=== PATIENT | female | born 1930 | race Caucasian/White ===

== ENCOUNTER 2017-01-15 09:36 | Emergency (ER) | payer MEDICARE ==
[~2017-01-15] VITALS: Ht 157.5 cm; Wt 67.0 kg
[~2017-01-15 09:36] MED LIST: AMLO5 PO; GALA16CA PO; HYDR-3288 PO; LISI-515 PO; LOVA20TA PO; MEGE40TA PO; PARO10TA2 PO; XARE10TA PO
[2017-01-15 09:39] VITALS: BP 154/70; PULSE 91; RESP 17; TEMP 97.8; O2SAT 98
--- NOTE | 2017-01-15 09:58 | PD ---
HPI Chief Complaint: Fall Time Seen by Provider: 09:55 Travel History International Travel<30 days: No Contact w/Intl Traveler<30days: No Traveled to known affect area: No History of Present Illness HPI Patient is an 86 year old female brought in by her family members for evaluation after fall. Patient fell at approximately 0645 this morning when she was attempting to get out of bed to use the bedside commode. Patient reports hitting her head on the floor but family members believe that she likely hit it on the dresser. Patient denies any complaints at this time. She has been ambulating normally does without any new difficulty. Patient is not on any blood thinners. Patient has 24-hour care at home due to baseline dementia. PFSH Past Medical History Arthritis: Yes (OSTEOPAROSIS) Heart Rhythm Problems: Yes (IRREG. HEART BEAT) Cancer: No High Cholesterol: Yes Diabetes: No GERD: Yes Glaucoma: No Hepatitis: No Hiatal Hernia: No Hypertension: Yes Medical other: Yes (DEGENERATIVE DISC DISEASE SPINE) Musculoskeletal: Yes (hip sx) Respiratory: No Immunizations Current: Yes Thyroid Disease: No Tetanus Vaccination: < 5 Years Influenza Vaccination: Yes Past Surgical History Abdominal Surgery: Yes (APPY) Appendectomy: Yes Eye Surgery: Yes (CATARACT LEFT EYE) Oral Surgery: Yes (TONSILS) Pacemaker: No Tonsillectomy: Yes Other Surgery: Yes Social History Alcohol Use: No Tobacco Use: No Substance Use: No Allergies-Medications (Allergen,Severity, Reaction): Coded Allergies: No Known Allergies (Verified , 01/15/17) Reported Meds & Prescriptions Reported Meds & Active Scripts Active Center (Hydrocodone-Acetaminophen) 7.5-325 mg Tab 1 Tab PO Q4H PRN Lisinopril 20 Mg Tab 20 Mg PO Q12HR Norvasc (Amlodipine Besylate) 5 Mg Tab 5 Mg PO DAILY 30 Days Galantamine ER (Galantamine Hydrobromide) 16 Mg Caper 8 Mg PO BID Reported Paroxetine (Paroxetine HCl) 10 Mg Tab 10 Mg PO DAILY Lovastatin 20 Mg Tab 20 Mg PO HS Review of Systems ROS Limitations: Poor Historian Except as stated in HPI: all other systems reviewed are Neg Musculoskeletal: No: Myalgias, Pain Neurologic: No: Weakness, Dizziness, Focal Abnormalities, Headache Physical Exam Narrative GENERAL: Well-developed, well-nourished, elderly female. Resting comfortably in no acute distress. Family at bedside. SKIN: Warm and dry. HEAD: Atraumatic. Normocephalic. EYES: Pupils equal and round. No scleral icterus. No injection or drainage. ENT: No nasal bleeding or discharge. Mucous membranes pink and moist. NECK: Trachea midline. No JVD. CARDIOVASCULAR: Irregular rate and rhythm. RESPIRATORY: No accessory muscle use. Clear to auscultation. Breath sounds equal bilaterally. GASTROINTESTINAL: Abdomen soft, non-tender, nondistended. Hepatic and splenic margins not palpable. MUSCULOSKELETAL: Extremities without clubbing, cyanosis, or edema. No obvious deformities. NEUROLOGICAL: Awake and alert to self only. No obvious cranial nerve deficits. Motor grossly within normal limits. Five out of 5 muscle strength in the arms and legs. Normal speech. PSYCHIATRIC: Appropriate mood and affect; insight and judgment impaired. Data Data Last Documented VS Vital Signs Date Time Temp Pulse Resp B/P Pulse Ox O2 Delivery O2 Flow Rate FiO2 01/15/17 09:39 97.8 91 17 154/[address] Brain W/O Iv Contrast(Rout) (01/15/17 ) [facility] Medical Decision Making Medical Screen Exam Complete: Yes Emergency Medical Condition: Yes Interpretation(s) Vital Signs Date Time Temp Pulse Resp B/P Pulse Ox O2 Delivery O2 Flow Rate FiO2 01/15/17 09:39 97.8 91 17 154/70 98 Differential Diagnosis Contusion versus hemorrhage versus laceration versus abrasion Narrative Course Patient is an 86-year-old female brought in by her family members for evaluation after a mechanical fall this morning. Patient reports hitting her head, there was no loss of consciousness. Patient has no other complaints at this time. Patient has 24-hour care at home. Vital signs are stable. CT scan of the brain shows no acute hemorrhage or abnormality. Patient will be discharged home with strict return precautions. Family members verbalized understanding of instructions. Patient is stable for discharge. Diagnosis Primary Impression: Fall Qualified Code: W19.XXXA - Fall, initial encounter Additional Impression: Contusion of head Qualified Code: S00.03XA - Contusion of scalp, initial encounter Referrals: Primary Care Physician Patient Instructions: Fall Prevention for Older Adults (ED), General Instructions, Head Injury (ED) Additional Instructions: Return to emergency department immediately for any new or worsening symptoms Follow-up with primary care Med/Other Pt SpecificInfo: No Change to Meds Disposition: 01 DISCHARGE HOME Condition: Stable Savita Daniel Jan 15, 2017 09:58
--- NOTE | 2017-01-15 10:00 | PD ---
Data Data Last Documented VS Vital Signs Date Time Temp Pulse Resp B/P Pulse Ox O2 Delivery O2 Flow Rate FiO2 01/15/17 09:39 97.8 91 17 154/[address] Brain W/O Iv Contrast(Rout) (01/15/17 ) MDM Supervised Visit with [place]: Yes Narrative Course I, Dr. Webster, have reviewed the advance practice practioner's documentation and am in agreement, met with the patient face to face, made the diagnosis, and the medical decision making was done by me. *My assessment and Findings: 86-year-old female brought in by family after fall at approximately 645 this morning while she was attempting to get out of bed. Believes that she sit hit her head on a dresser. No LOC. No headache, nausea vomiting or any other pain. Family notes a "goose egg" to the left forehead/ scalp region. She is not anticoagulated. GCS 1 15, mental status baseline per family. No focal neuro deficit. No head neck or back pain. She does have a contusion over the left frontal parietal scalp. Patient is minimally ablate independently since fall. Differential includes mechanical fall, closed head injury, skull fracture, ICH. Will obtain head CT and discharged home if negative. Amanda Webster MD Jan 15, 2017 10:00
--- NOTE | 2017-01-15 10:48 | RADRPT ---
EXAM DATE/TIME: 01/15/2017 10:14 [facility] COMPARISON: CT BRAIN W/O CONTRAST, September 05, 2016, 21:32. INDICATIONS : Fell out of bed and hit head. RADIATION DOSE: 56.35 CTDIvol (mGy) MEDICAL HISTORY : Hypertension. Cardiovascular disease SURGICAL HISTORY : Tonsillectomy. ENCOUNTER: Initial ACUITY: 1 day PAIN SCALE: 3/10 LOCATION: cranial TECHNIQUE: Multiple contiguous axial images were obtained of the head. Using automated exposure control and adj ustment of the mA and/or kV according to patient size, radiation dose was kept as low as reasonably a chievable to obtain optimal diagnostic quality images. FINDINGS: There is no evidence for intracranial hemorrhage, mass effect, mass lesions, or edema. The visualize d bony structures appear intact. Significant degree of brain atrophy is seen. Moderate to severe per iventricular white matter changes are seen nonspecific mostly consistent with chronic small vessel is chemic changes. There are no signs of acute infarction for technique. 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 CONCLUSION: Chronic and small vessel ischemic changes without any evidence for acute hemorrhage o r mass effect. Autumn Mcmahan MD on January 15, 2017 at 10:45 Board Certified Radiologist. This report was verified electronically.
== END 2017-01-15 11:08 | disposition home or self-care (01) ==
LOC: NEPD 09:36
DX: S00.03XA Contusion of scalp, initial encounter (principal); W06.XXXA Fall from bed, initial encounter
CPT/HCPCS: 70450; 99283

== ENCOUNTER 2017-06-17 19:09 | Emergency (ER) | payer MEDICARE ==
[~2017-06-17] VITALS: Ht 160 cm; Wt 67.0 kg
[~2017-06-17 19:09] MED LIST changes: -MEGE40TA PO; -XARE10TA PO
[2017-06-17 19:25] VITALS: BP 161/88; PULSE 92; RESP 16; TEMP 97.7; O2SAT 99
[2017-06-17] MEDS ORDERED: MEMA1TAB2 PO (19:26)
--- NOTE | 2017-06-17 19:52 | RADRPT ---
EXAM DATE/TIME: 06/17/2017 19:26 [facility] COMPARISON: No previous studies available for comparison. INDICATIONS : Twisted foot this evening while falling today. Pain while walking in lateral malleolus. MEDICAL HISTORY : Hypertension. SURGICAL HISTORY : None. ENCOUNTER: Initial ACUITY: 1 day PAIN SCORE: 0/10 LOCATION: Left foot FINDINGS: Two view examination of the left foot demonstrates no soft tissue swelling, dislocation, or fracture. The calcaneus is intact. Bones are osteopenic. CONCLUSION: No acute fracture or subluxation seen of the left foot. Nimesh Brewster MD on June 17, 2017 at 19:49 Board Certified Radiologist. This report was verified electronically.
--- NOTE | 2017-06-17 19:54 | RADRPT ---
EXAM DATE/TIME: 06/17/2017 19:27 [facility] COMPARISON: No previous studies available for comparison. INDICATIONS : Twisted foot this evening while falling today. Pain while walking in lateral malleolus. MEDICAL HISTORY : Hypertension. SURGICAL HISTORY : None. ENCOUNTER: Initial ACUITY: 1 day PAIN SCORE: 7/10 LOCATION: Left Ankle FINDINGS: Soft tissues are swollen, especially laterally. There is a questionable nondisplaced fracture of the lateral malleolus, level with the tibiotalar joint. No subluxation. CONCLUSION: Suspected nondisplaced fracture of the lateral malleolus. Nimesh Brewster MD on June 17, 2017 at 19:51 Board Certified Radiologist. This report was verified electronically.
--- NOTE | 2017-06-17 20:15 | PD ---
HPI Chief Complaint: Injury Time Seen by Provider: 19:28 Travel History International Travel<30 days: No Contact w/Intl Traveler<30days: No Traveled to known affect area: No History of Present Illness HPI Patient is an 87-year-old female with a history of stroke leaving some difficulty with walking presents emergency department after a slip in the bathroom. She has 24 hour health care at home and apparently slipped in the bathroom on a wet floor and was caught by her aide and lowered to the ground. She doesn't think she actually injured the ankle. She states "I don't think I need to be here". Quite pleasant able to answer all of her history on her own. Denies any head injury and neck injury back injury chest abdomen or pelvis pain. She is a coming by her home health aide reynaldo which is not the same aide who helps her with the fall. No syncope no chest pain no shortness of breath. PFSH Past Medical History Arthritis: Yes (OSTEOPAROSIS) Heart Rhythm Problems: Yes (IRREG. HEART BEAT) Cancer: No High Cholesterol: Yes Diabetes: No GERD: Yes Glaucoma: No Hepatitis: No Hiatal Hernia: No Hypertension: Yes Musculoskeletal: Yes (hip sx) Respiratory: No Immunizations Current: Yes Thyroid Disease: No ?: Not Past Surgical History Abdominal Surgery: Yes (APPY) Appendectomy: Yes Eye Surgery: Yes (CATARACT LEFT EYE) Oral Surgery: Yes (TONSILS) Pacemaker: No Tonsillectomy: Yes Other Surgery: Yes Social History Alcohol Use: No Tobacco Use: No Substance Use: No Allergies-Medications (Allergen,Severity, Reaction): Coded Allergies: No Known Allergies (Verified , 06/17/17) Reported Meds & Prescriptions Reported Meds & Active Scripts Active Norvasc (Amlodipine Besylate) 5 Mg Tab 5 Mg PO DAILY 30 Days Galantamine ER (Galantamine Hydrobromide) 16 Mg Caper 8 Mg PO BID Reported Memantine 10 Mg Tab 10 Mg PO DAILY Paroxetine (Paroxetine HCl) 10 Mg Tab 10 Mg PO DAILY Lovastatin 20 Mg Tab 20 Mg PO HS Review of Systems Except as stated in HPI: all other systems reviewed are Neg Physical Exam Narrative GENERAL: Well-nourished, well-developed patient. Quite pleasant in no distress. SKIN: Focused skin assessment warm/dry. HEAD: Normocephalic. EYES: No scleral icterus. No injection or drainage. NECK: Supple, trachea midline. No JVD or lymphadenopathy. CARDIOVASCULAR: Regular rate and rhythm without murmurs, gallops, or rubs. RESPIRATORY: Breath sounds equal bilaterally. No accessory muscle use. GASTROINTESTINAL: Abdomen soft, non-tender, nondistended. MUSCULOSKELETAL: No cyanosis, or edema. There is no tenderness at the medial malleolus nor the lateral malleolus of the left ankle with the patient reports a sore at the lateral malleolus. Minimal swelling appreciated. No tenderness over the foot. Full nontender range of motion distally and proximally to the ankle. No proximal fibular tenderness. Right lower extremity atraumatic. No midline CT or L-spine tenderness. BACK: Nontender without obvious deformity. No CVA tenderness. Data Data Last Documented VS Vital Signs Date Time Temp Pulse Resp B/P (MAP) Pulse Ox O2 Delivery O2 Flow Rate FiO2 06/17/17 19:25 97.7 92 16 161/88 (112) 99 Orders Orders Ankle, Complete ([id number]) (06/17/17 19:22) Foot, Limited (2vws) (06/17/17 19:22) Ice/Cold Pack (06/17/17 19:22) Splint Or Brace Apply/Monitor (06/17/17 20:11) Fiberglass Short Leg Splint Ad (06/17/17 ) Fiberglass Sugartong Sp Ad Sl (06/17/17 ) MDM Medical Decision Making Medical Screen Exam Complete: Yes Emergency Medical Condition: Yes Differential Diagnosis Ankle sprain ankle fracture ankle strain. Narrative Course Patient roomed in emergency department, x-rays show nondisplaced transverse fracture of the distal fibula/lateral malleolus involving approximately 1 cm from the distal end of the bone. Discussed with the patient will place in a splint, she does have a wheelchair at home and has 24-hour home health care. Discussed need for follow-up and repeat x-rays in a week she can do with her primary care physician or the orthopedist educational consultant. Discussed return to ED criteria. She was offered pain medicine emergency department and declined. Diagnosis Primary Impression: Lateral malleolar fracture Qualified Codes: S82.65XA - Nondisplaced fracture of lateral malleolus of left fibula, initial encounter for closed fracture Referrals: Toshia Laureano MD Additional Instructions: Recommend calling your regular physician tomorrow for a follow up appointment. Recommend repeat xrays in 1 week and/or follow up with Dr. Laureano (orthopedics). Disposition: 01 DISCHARGE HOME Condition: Stable Jakob Lerner MD Jun 17, 2017 20:15
== END 2017-06-17 20:53 | disposition home or self-care (01) ==
LOC: PHEFT 19:09
DX: S82.65XA Nondisplaced fracture of lateral malleolus of left fibula, initial encounter for closed fracture (principal); W01.0XXA Fall on same level from slipping, tripping and stumbling without subsequent striking against object, initial encounter; I10 Essential (primary) hypertension
CPT/HCPCS: 29515; 73610; 73620